=== PATIENT | female | born 1995 | race Hispanic/Latino ===

== ENCOUNTER 2021-12-08 23:59 | Inpatient (IN) | payer OTHER ==
--- NOTE | 2021-12-09 01:23 | NUR ---
caren ohara done to both nares.
[2021-12-09] MEDS ORDERED: PRENATAL VITAM1 EACH PO (01:25)
--- NOTE | 2021-12-09 06:08 | PR ---
[facility] [address] [facility] [place], [place] [address] Signed Progress Notes IP Datetime Report Generated by CPN: 12/09/2021 06:08 PROGRESS NOTES: [id number] Impression: Normal Progression of Labor Plan: Continue Present Management; Anticipate Vaginal Delivery VITAL SIGNS: [id number] Vital Signs: Reviewed; Within Normal Limits EXAM: [id number] Dilatation: 7.0 Effacement: 90 Station: -1 MEMBRANES: [id number] Membranes Status: Ruptured Amniotic Fluid Color: Clear Comments: Comfortable with Epidural. Will continue monitoring. FETUS A: [id number] FHR Baseline: 130 Variability: Moderate 6-25bpm Accelerations: 15X15 Presentation: Vertex FETUS B: [id number] Signing Physician: Danielito Arguello MD Copies: ~ *Electronically Signed* 12/09/21 0608 DANIELITO ARGUELLO MD PATIENT NAME: DARCY CRUZ PROGRESS NOTE DATE OF : 95 PHYSICIAN: DANIELITO ARGUELLO MD RPT #: [id number] REPORT IS CONFIDENTIAL AND NOT TO BE RELEASED WITHOUT AUTHORIZATION
--- NOTE | 2021-12-10 12:06 | PR ---
[facility] [address] [place] [address] Signed PP Progress Notes Datetime Report Generated by CPN: 12/10/2021 12:06 SUBJECTIVE: [id number] Pain: Within Normal Limits Nausea/Vomiting: Denies Vital Signs: [id number] Vital Signs: Reviewed; Within Normal Limits Notable Details: PP Hgb/Hct = 9.7/28.4 EXAM: Ongoing Abdomen/Uterus: Normal Lochia: Normal Extremities: Normal IMPRESSION/PLAN/PROCEDURES: [id number] Impression: Normal Progression Other Impression: PP Anemia Plan: Discharge Procedures: None Progress Notes: Doing well, without complaint, wants to go home. Signing Physician: Danielito Arguello MD Copies: ~ *Electronically Signed* 12/10/21 1206 DANIELITO ARGUELLO MD PATIENT NAME: DARCY CRUZ PROGRESS NOTE DATE OF : 95 PHYSICIAN: DANIELITO ARGUELLO MD RPT #: [id number] REPORT IS CONFIDENTIAL AND NOT TO BE RELEASED WITHOUT AUTHORIZATION
== END 2021-12-10 13:30 | disposition home or self-care (01) | DRG 807 ==
LOC: FBCO 23:59 → FBC 12-09 01:02
PROVIDERS: ADMIT Obstetrics & Gynecology; ATTEND Obstetrics & Gynecology
PROC: 10E0XZZ Delivery of Products of Conception, External Approach (ICD-10-PCS; principal; 2021-12-09)
PROC: 0HQ9XZZ Repair Perineum Skin, External Approach (ICD-10-PCS; 2021-12-09)
PROC: 3E0R3BZ Introduction of Anesthetic Agent into Spinal Canal, Percutaneous Approach (ICD-10-PCS; 2021-12-09)
PROC: 00HU33Z Insertion of Infusion Device into Spinal Canal, Percutaneous Approach (ICD-10-PCS; 2021-12-09)
DX: O70.0 First degree perineal laceration during delivery (principal); O90.81 Anemia of the puerperium; D64.9 Anemia, unspecified; Z20.822 Contact with and (suspected) exposure to COVID-19; Z37.0 Single live birth; Z3A.39 39 weeks gestation of pregnancy
CPT/HCPCS: 01960; 85027; 86850; 86900; 86901; A9270; C9803; J0171; J2001; J2405; J2590; J2795; J7121; U0003